=== PATIENT | female | born 1960 | race Caucasian/White ===

== ENCOUNTER → 2018-02-12 | Outpatient (CLI) | payer BC ==
--- NOTE | 2018-02-12 11:07 | MR ---
EXAMINATION TYPE: MR knee LT wo con DATE OF EXAM: 02/12/2018 COMPARISON: NONE HISTORY: Left knee pain TECHNIQUE: Multiplanar, multisequence imaging of the left knee is performed without IV contrast. FINDINGS: There is a large area of marrow edema or contusion involving the tibial plateau. There is p retibial soft tissue edema. Patellar tendon appears intact. Anterior cruciate and posterior cruciate ligaments intact. Medial collateral and lateral collateral l igaments are also intact. There is abnormal marrow edema involving the patella with loss of patellar cartilage compatible with grade III chondromalacia. Loss of the joint space of the patellofemoral compartment and medial compartment of the knee joint wi thout evidence of erosive change. 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 Intrasubstance signal within the posterior horn the medial lateral meniscus is most typical of myxoid degeneration. IMPRESSION: 1. Large area of marrow edema involving the tibia with a linear area of abnormal signal extending fro m the tibial plateau into the intercondylar notch suspicious for fracture which could be confirmed wi th CT scan. 2. Arthritic changes with chondromalacia as discussed above.
== END | disposition home or self-care (01) ==
LOC: RADMRIMAIN 09:20
PROVIDERS: ATTEND Nurse Practitioner Family
DX: M17.12 Unilateral primary osteoarthritis, left knee (principal); M94.262 Chondromalacia, left knee